=== PATIENT | male | born 1955 | race Caucasian/White ===

== ENCOUNTER → 2017-06-06 | Outpatient (CLI) | payer OTHER ==
[~2017-06-06] MED LIST: GADOBUTROL 10 MMOL/10 ML PFS ONE
== END | disposition home or self-care (01) ==
LOC: RAD 06:38
PROVIDERS: ATTEND Otolaryngology
DX: H53.8 Other visual disturbances (principal); C77.0 Secondary and unspecified malignant neoplasm of lymph nodes of head, face and neck; G51.9 Disorder of facial nerve, unspecified
CPT/HCPCS: 70543; A9585

== ENCOUNTER 2017-08-31 11:51 | Day surgery (SDC) | payer OTHER ==
[~2017-08-31] VITALS: Ht 175.3 cm; Wt 94.5 kg
[2017-08-31] MEDS ORDERED: LISI-167 PO (12:32)
[2017-08-31] MEDS ORDERED: BUTA1CAP59 PO (12:32)
[2017-08-31] MEDS ORDERED: LORA-446 PO (12:32)
[2017-08-31] MEDS ORDERED: SODIUM CHLORIDE 0.9% 1,000 ML IV SCH (12:32)
[2017-08-31] MEDS ORDERED: CEFAZOLIN PMX 1GM/50ML 50 ML IV ONE (13:00)
[2017-08-31 13:03] VITALS: BP 113/79
[2017-08-31] MEDS ORDERED: LIDOCAINE-MPF 2% ,5ML ONE (13:29)
[2017-08-31] MEDS ORDERED: FLUMAZENIL 0.1 MG/1 ML, 5ML ONE (13:38)
[2017-08-31] MEDS ORDERED: NALOXONE 1 MG/ML, 2ML ONE (13:38)
[2017-08-31] MEDS ORDERED: FENTANYL PF 100 MCG/2ML ONE (13:38)
[2017-08-31] MEDS ORDERED: MIDAZOLAM 1 MG/ML, 5ML ONE (13:38)
== END 2017-08-31 16:05 | disposition home or self-care (01) ==
LOC: OUT 11:51
PROVIDERS: ATTEND Internal Medicine Hematology & Oncology
DX: Z45.2 Encounter for adjustment and management of vascular access device (principal); C08.9 Malignant neoplasm of major salivary gland, unspecified; F41.9 Anxiety disorder, unspecified; J45.909 Unspecified asthma, uncomplicated; E78.00 Pure hypercholesterolemia, unspecified; G43.909 Migraine, unspecified, not intractable, without status migrainosus; F17.210 Nicotine dependence, cigarettes, uncomplicated; I10 Essential (primary) hypertension; Z98.890 Other specified postprocedural states; Z87.39 Personal history of other diseases of the musculoskeletal system and connective tissue
CPT/HCPCS: 36561; 77001; 99156; 99157; J0690; J1642; J2250; J3010; J3490; J7030; J2310

== ENCOUNTER → 2020-08-17 | Outpatient (CLI) | payer OTHER ==
[~2020-08-17] MED LIST changes: +BUTA1CAP59 PO; -GADOBUTROL 10 MMOL/10 ML PFS ONE; +LISI-167 PO; +LORA-446 PO
[2020-08-17 15:57] LABS: BASOPHILS % (AUTO) 1 % (0-1); EOSINOPHILS % (AUTO) 3 % (1-7); LYMPHOCYTES % (AUTO) 14 % (22-44); MEAN CORPUSCULAR HEMOGLOBIN 29.5 pg (27.5-34.5); MEAN CORPUSCULAR HGB CONC 33.6 g/dL (33.2-36.2); MEAN PLATELET VOLUME 7.1 fL (7.4-10.4); MONOCYTES % (AUTO) 9 % (2-9); NEUTROPHILS % (AUTO) 72 % (42-75); PLATELET COUNT 213 x10^3/uL (130-400); RED BLOOD COUNT 5.49 x10^6/uL (4.38-5.82); RED CELL DISTRIBUTION WIDTH 14.1 % (9.4-14.8)
[2020-08-17 15:58] LABS: MD NO
[2020-08-17 16:02] LABS: ALANINE AMINOTRANSFERASE 23 U/L (12-78); ANION GAP 5 mmol/L (5-15); CALCIUM 9.2 mg/dL (8.5-10.1); CHLORIDE 108 mmol/L (98-107); CREATININE 1.31 mg/dL (0.7-1.3)
[2020-08-17 16:04] LABS: ALKALINE PHOSPHATASE 88 U/L (45-117); BILIRUBIN,TOTAL 0.5 mg/dL (0.2-1.0); TOTAL PROTEIN 7.3 g/dL (6.4-8.2)
== END | disposition home or self-care (01) ==
LOC: STAR 15:10
PROVIDERS: ATTEND Thoracic Surgery (Cardiothoracic Vascular Surgery)
DX: Z01.818 Encounter for other preprocedural examination (principal); R94.31 Abnormal electrocardiogram [ECG] [EKG]; Z20.822 Contact with and (suspected) exposure to COVID-19
CPT/HCPCS: 36415; 80053; 85025; 93005; U0003

== ENCOUNTER 2020-08-22 06:04 | Inpatient (IN) | payer OTHER ==
[~2020-08-22] VITALS: Ht 175.3 cm; Wt 88.5 kg
[2020-08-22] MEDS ORDERED: EPINEPHRINE 1 MG/ML, 1ML ONE (06:48)
[2020-08-22] MEDS ORDERED: BUPIVACAINE/PF 0.5% ONE (06:48)
[2020-08-22] MEDS ORDERED: MIDAZOLAM 1 MG/ML, 2ML ONE (06:51)
[2020-08-22] MEDS ORDERED: FENTANYL PF 250 MCG/5ML ONE (06:51)
[2020-08-22] MEDS ORDERED: CEFAZOLIN 1,000 MG ONE (06:52)
[2020-08-22] MEDS ORDERED: ROCURONIUM 10MG/ML,5ML ONE (06:52)
[2020-08-22] MEDS ORDERED: GLYCOPYRROLATE 0.2MG/1ML, 5ML ONE (06:52)
[2020-08-22] MEDS ORDERED: PROPOFOL 10 MG/ML, 20ML ONE (06:52)
[2020-08-22] MEDS ORDERED: NEOSTIGMINE 1 MG/ML, 10ML ONE (06:52)
[2020-08-22] MEDS ORDERED: CHLORHEXIDINE 15 ML UDC ONE (06:55)
[2020-08-22] MEDS ORDERED: CHLORHEXIDINE 15 ML UDC PO ONE (07:00)
[2020-08-22] MEDS ORDERED: LACTATED RINGERS 1,000 ML IV SCH ×2 (07:00→09:00)
[2020-08-22] MEDS ORDERED: LABETALOL 5MG/ML, 20ML IV PRN (07:30)
[2020-08-22] MEDS ORDERED: morphine SULFATE 10 MG/ML, 1ML IVPush PRN ×2 (07:30→09:00)
[2020-08-22] MEDS ORDERED: OXYcodone 5 MG/5 ML ORAL.SOL UDC PO PRN (07:30)
[2020-08-22] MEDS ORDERED: HYDROmorphone 1 MG/ML, 1ML INJ IVPush PRN (07:30)
[2020-08-22] MEDS ORDERED: hydrALAzine 20 MG/ML, 1ML IV PRN (07:30)
[2020-08-22] MEDS ORDERED: ONDANSETRON 2MG/ML, 2ML IVPush PRN (07:30)
[2020-08-22] MEDS ORDERED: ACETAMINOPHEN 325 MG TABLET PO PRN ×2 (07:30→09:00)
[2020-08-22] MEDS ORDERED: MEPERIDINE/PF 25MG/0.5ML IVPush PRN (07:30)
[2020-08-22] MEDS ORDERED: BUPIVACAINE/PF-EPI 0.5% 1:200K INFIL ONE (07:46)
[2020-08-22] MEDS: FENTANYL PF 100 MCG/2ML IV PRN ×4 (08:40→09:00)
[2020-08-22] MEDS ORDERED: ACETAMINOPHEN 650 MG/20.3 ML UDC ONE (08:40)
[2020-08-22] MEDS ORDERED: FENTANYL PF 100 MCG/2ML ONE ×2 (08:40→09:02)
[2020-08-22] MEDS ORDERED: OXYcodone 5 MG/5 ML ORAL.SOL UDC ONE (08:40)
[2020-08-22] MEDS ORDERED: ENALAPRILAT 1.25 MG/ML, 2ML IVPush PRN (09:00)
[2020-08-22] MEDS ORDERED: hydrALAzine 20 MG/ML, 1ML IVPush PRN (09:00)
[2020-08-22] MEDS ORDERED: LORazepam 0.5MG TABLET PO PRN (09:00)
[2020-08-22] MEDS ORDERED: DIPHENHYDRAMINE 25 MG CAPSULE PO PRN (09:00)
[2020-08-22] MEDS ORDERED: LORazepam 2 MG/ML, 1ML IVPush PRN (09:00)
[2020-08-22] MEDS ORDERED: FAMOTIDINE 20 MG/2 ML IVPush SCH (09:00)
[2020-08-22] MEDS ORDERED: KETOROLAC 30 MG/1 ML ONE (09:27)
[2020-08-22] MEDS: KETOROLAC 30 MG/1 ML IVPush PRN ×2 (09:30→19:54)
[2020-08-22] MEDS: ONDANSETRON 2MG/ML, 2ML IVPush PRN (10:35)
[2020-08-22] MEDS: FAMOTIDINE 20 MG TABLET PO SCH ×2 (11:35→22:44)
[2020-08-22] MEDS: HYDROcodone/APAP 5/325 TABLET PO PRN ×3 (11:44→21:17)
[2020-08-22 13:43] VITALS: BP 110/72
[2020-08-22 19:44] VITALS: BP 147/87
[2020-08-22 23:10] VITALS: BP 116/76
[2020-08-23] MEDS: HYDROcodone/APAP 5/325 TABLET PO PRN ×2 (02:14→02:16)
[2020-08-23] MEDS: KETOROLAC 30 MG/1 ML IVPush PRN (02:14)
[2020-08-23 04:18] VITALS: BP 138/86
[2020-08-23 04:56] LABS: BASOPHILS % (AUTO) 1 % (0-1); EOSINOPHILS % (AUTO) 2 % (1-7); LYMPHOCYTES % (AUTO) 9 % (22-44); MEAN CORPUSCULAR HEMOGLOBIN 29.7 pg (27.5-34.5); MEAN CORPUSCULAR HGB CONC 33.5 g/dL (33.2-36.2); MEAN PLATELET VOLUME 7.1 fL (7.4-10.4); MONOCYTES % (AUTO) 8 % (2-9); NEUTROPHILS % (AUTO) 80 % (42-75); PLATELET COUNT 163 x10^3/uL (130-400); RED BLOOD COUNT 4.67 x10^6/uL (4.38-5.82); RED CELL DISTRIBUTION WIDTH 14.2 % (9.4-14.8)
[2020-08-23 05:01] LABS: MD NO
[2020-08-23 05:03] LABS: ANION GAP 4 mmol/L (5-15); CALCIUM 8.1 mg/dL (8.5-10.1); CHLORIDE 111 mmol/L (98-107); CREATININE 1.37 mg/dL (0.7-1.3)
[2020-08-23 06:23] VITALS: BP 130/78
[2020-08-23] MEDS ORDERED: HYDR-2214 PO (08:22)
[2020-08-23] MEDS ORDERED: HYDR-3237 PO (08:26)
[2020-08-23] MEDS: FAMOTIDINE 20 MG TABLET PO SCH (08:45)
[2020-08-23] MEDS: ONDANSETRON 2MG/ML, 2ML IVPush PRN (08:46)
[2020-08-23] MEDS ORDERED: ENOXAPARIN 40 MG/0.4 ML SQ SCH (09:00)
== END 2020-08-23 10:25 | disposition home or self-care (01) | DRG 165 ==
LOC: ORIP 06:04 → 4NE 10:16 → DCLOUNGE 08-23 10:15
PROVIDERS: ADMIT Thoracic Surgery (Cardiothoracic Vascular Surgery); ATTEND Thoracic Surgery (Cardiothoracic Vascular Surgery)
PROC: 0WP8X3Z Removal of Infusion Device from Chest Wall, External Approach (ICD-10-PCS; 2020-08-22)
PROC: 0BBJ4ZZ Excision of Left Lower Lung Lobe, Percutaneous Endoscopic Approach (ICD-10-PCS; principal; 2020-08-22 07:30)
DX: R91.8 Other nonspecific abnormal finding of lung field (principal)
CPT/HCPCS: 36415; S0020; 71045; 80048; 85025; 86850; 86900; 88307; C1729; G0378; J0171; J0690; J1650; J1885; J2250; J2405; J2704; J2710; J3010; J7120